=== PATIENT | male | born 1960 | race Caucasian/White ===

== ENCOUNTER → 2019-12-22 13:43 | Outpatient (CLI) | payer OTHER, SELFPAY ==
[2019-12-16 16:24] VITALS: BMI 27.6
--- NOTE | 2019-12-22 13:54 | US_ITS ---
STUDY: ULTRASOUND - URINARY BLADDER REASON FOR EXAM: Male, 59 years old. Frequency TECHNIQUE: Ultrasound evaluation of the urinary bladder was performed with real-time and static roland-scale imaging. COMPARISON: None. FINDINGS: There is no right UVJ calculus. There is a visualized right ureteral jet. There is no left UVJ calculus. There is a visualized left ureteral jet. The distended volume of the urinary bladder is 249 ml. The empty volume of the urinary bladder is 39 ml. The bladder wall is within normal limits. The bladder wall measures . There is no demonstrated bladder wall mass lesion. There are no demonstrated bladder calculi. US/Post Void Residual Bladder IMPRESSION: Small postvoid residual. Electronically Signed: Mark Gutierrez, at 14:44 EDT , Service support ,
== END ==
PROVIDERS: PCP Family Medicine; Referring Provider Family Medicine; Visit Provider Family Medicine
DX: R35.0 Frequency of micturition (principal)
CPT/HCPCS: 51798

== ENCOUNTER → 2020-06-15 08:58 | Outpatient (CLI) | payer OTHER, SELFPAY ==
[2020-06-15 08:31] VITALS: BMI 27.7
[2020-06-15 13:25] LABS: AST(SGOT) 21 U/L (15-37); Alanine Aminotransfer ALT/SGPT 50 U/L (16-61); Albumin, Serum 3.8 g/dL (3.2-5.0); Alkaline Phosphatase 56 U/L (45-117); Anion Gap 6 (5-15); BUN 14 mg/dL (7-18); Calcium,Total 9.2 mg/dL (8.5-10.1); Chloride 104 mmol/L (98-107); Cholesterol 207 mg/dL (200); EST Glomerular Filtration Rate 81 mL/min (>60); Est Glom Filt Rate - Afr Amer 98 mL/min (>60); Globulin 3.8 g/dL (2.2-4.2); Glucose 91 mg/dL (74-106); High Density Lipoprotein 46 mg/dL; Protein, Total 7.6 g/dL (6.4-8.2); Sodium Level 141 mmol/L (136-145); Triglycerides 173 mg/dL; Very Low Density Lipoprotein 35 mg/dL (5-40)
== END ==
PROVIDERS: PCP Family Medicine; Referring Provider Family Medicine; Visit Provider Family Medicine
DX: I10 Essential (primary) hypertension (principal); E78.49 Other hyperlipidemia
CPT/HCPCS: 36415; 80053; 80061

== ENCOUNTER → 2020-12-12 09:02 | Outpatient (CLI) | payer OTHER, SELFPAY ==
[2020-12-12 08:40] VITALS: BMI 27.7
[2020-12-12 12:41] LABS: T4 Free Direct 0.96 ng/dL (0.76-1.46)
== END ==
PROVIDERS: PCP Family Medicine; Referring Provider Family Medicine; Visit Provider Family Medicine
DX: I10 Essential (primary) hypertension (principal)
CPT/HCPCS: 36415; 84439; 84443

== ENCOUNTER 2021-10-02 08:58 | Outpatient (CLI) | payer OTHER, SELFPAY ==
[2021-10-02 13:01] LABS: ALB/GLOB Ratio 1.1 RATIO (0.9-2.4); AST(SGOT) 29 U/L (15-37); Alanine Aminotransfer ALT/SGPT 63 U/L (16-61); Albumin, Serum 3.8 g/dL (3.2-5.0); Alkaline Phosphatase 48 U/L (45-117); Anion Gap 5 (5-15); BUN 13 mg/dL (7-18); BUN/Creat Ratio 13.2 RATIO (10-20); Calcium,Total 9.1 mg/dL (8.5-10.1); Chloride 105 mmol/L (98-107); Cholesterol 199 mg/dL (200); Creatinine, Serum 0.98 mg/dL (0.70-1.30); EST Glomerular Filtration Rate 82 mL/min (>60); Est Glom Filt Rate - Afr Amer 99 mL/min (>60); Globulin 3.6 g/dL (2.2-4.2); Glucose 101 mg/dL (74-106); High Density Lipoprotein 37 mg/dL; PSA,Total- Diagnostic 2.75 ng/mL (0.0-4.0); Potassium 4.1 mmol/L (3.5-5.1); Protein, Total 7.4 g/dL (6.4-8.2); Sodium Level 140 mmol/L (136-145); Triglycerides 243 mg/dL; Very Low Density Lipoprotein 49 mg/dL (5-40)
== END 2021-10-02 23:59 | disposition home or self-care (01) ==
LOC: BIMLAB 08:59
PROVIDERS: PCP Family Medicine; Referring Provider Family Medicine; Visit Provider Family Medicine
DX: N40.0 Benign prostatic hyperplasia without lower urinary tract symptoms (principal); E78.5 Hyperlipidemia, unspecified; I10 Essential (primary) hypertension
CPT/HCPCS: 36415; 80053; 80061; 84153

== ENCOUNTER 2022-02-10 13:37 | Emergency (ER) | payer OTHER, SELFPAY ==
[2022-02-10 13:38] VITALS: BP 209/98; PULSE 73; RESP 15; TEMP 36.6; O2SAT 97; BMI 27.1
[2022-02-10] MEDS: HYDROcodone Bitartrate/Apap 5/325 Tablet PO (14:27)
[2022-02-10] MEDS: predniSONE 20 MG Tablet 40 MG PO (14:27)
[2022-02-10] MEDS: cycloBENZAPRine HCl 10 MG Tablet PO (14:27)
--- NOTE | 2022-02-10 14:30 | RAD_ITS ---
STUDY: X-RAY - PELVIS AND RIGHT HIP REASON FOR EXAM: Male, 62 years old. Pain TECHNIQUE: 3 views of the pelvis and hip. COMPARISON: None. FINDINGS: There is a non-specific bowel gas pattern. Normal visualized soft tissue structures. Normal bilateral iliac wings, sacroiliac joints and visualized sacrum. Normal bilateral superior and inferior pubic rami. Normal pubic symphysis. Normal bilateral ischial tuberosities. There are degenerative changes of the hips characterized by joint space narrowing and subchondral sclerosis. RAD/HIP, UNI W/ Pelvis 2-3 Views IMPRESSION: Degenerative changes. Electronically Signed: Phuong Cordova MD at 15:40 EDT ,
[2022-02-10 15:41] VITALS: BP 200/98; PULSE 61; RESP 16; O2SAT 96
--- NOTE | 2022-02-10 16:05 | EX.ED.DYSGE1 ---
HPI History of Present Illness Chief Complaint: Lower Extremity Injury Detail of Chief Complaint: Right hip pain Informant: patient Onset/Context/Timing Onset: Days Context: Gradual Onset Current Severity: Moderate Maximum Severity: Moderate Narrative Narrative: Patient presents secondary to right hip pain. He fell a couple days ago while doing some yard work landing on his right side. He has been sore but tolerable over the past several days. He was sitting at his [employer] baseball game today when he started getting more severe pain down the back of his thigh to his knee. He brought his neighbors cane to help him ambulate today. [facility] Medical History (Updated 02/10/22 @ 16:[address] Lorelei Macias MD) Back problem Frequent headaches Hearing problem History of hand fracture Hives Hyperlipemia Hypertension prostate issues Seasonal allergies Home Medications multivitamin 1 cap PO DAILY 10/28/19 [History Last Taken Unknown] omega 7-dwk-xvs-fish oil 1,600 mg-500 mg-800 mg/5 mL oral liquid (Fish Oil) 5 ml PO DAILY 10/28/19 [History Last Taken Unknown] cetirizine 10 mg capsule 10 mg PO DAILY #90 caps 12/16/19 [Rx Last Taken Unknown] azilsartan medoxomil 80 mg tablet (Edarbi) 80 mg PO DAILY #90 tabs 10/02/21 [Rx Last Taken Unknown] carvedilol 25 mg tablet 25 mg PO BID #180 tabs 10/02/21 [Rx Last Taken Unknown] tadalafil 5 mg tablet 5 mg PO DAILY #90 tabs 10/02/21 [Rx Last Taken Unknown] cyclobenzaprine 10 mg tablet 10 mg PO BID PRN muscle spasm #10 tabs 02/10/22 [Rx Last Taken Unknown] hydrocodone-acetaminophen 5-325mg 5mg-325mg 1 tab PO Q6H PRN pain 3 days #10 tabs 02/10/22 [Rx Last Taken Unknown] prednisone 20 mg tablet 40 mg PO DAILY #8 tabs 02/10/22 [Rx Last Taken Unknown] Allergy/AdvReac Type Severity Reaction Status Date / Time Influenza Virus Vaccines Allergy Severe Hives Verified 02/10/22 13:38 niacin Allergy Severe Hives Verified 02/10/22 13:38 most BP medications AdvReac Severe dizziness Uncoded 02/10/22 13:38 Family History Father Myocardial infarction, Onset Age: 45 Mother Hypertension Brother Hypertension Sister Hypertension Other Alcoholism Arthritis Breast cancer Cancer Diabetes Heart disease Hyperlipemia Surgical History History of removal of cyst Social History Smoking Status: Never smoker alcohol intake: current alcohol intake frequency: 0-2 drinks per day Alcohol type: beer and wine substance use type: does not use what type of physical activity do you participate in: bicycling frequency: 1-2 times per week ROS ROS ED Constitutional Constitutional ED: Denies chills or fever(s) Eyes Eyes: Denies change in vision or discharge from eye(s) ENT ENT ED: Denies discharge from eye(s), rhinorrhea or sore throat Cardiovascular Cardiovascular: Denies chest pain or palpitations Respiratory/Chest Respiratory/Chest: Denies cough or dyspnea Gastrointestinal Gastrointestinal: Denies abdominal pain, diarrhea, nausea or vomiting Genitourinary Genitourinary ED: Denies difficulty urinating or dysuria Musculoskeletal Musculoskeletal: Reports back pain and extremity pain Integumentary Denies Abrasions or rash Neurologic Neurologic: Denies headache(s) or weakness Allergic/Immunologic Allergic/Immunologic ED: Denies lip swelling or urticaria EXAM Physical Exam Const Vital Signs: 02/10/22 13:38 02/10/22 15:41 Temperature 97.9 F Temperature Source Temporal Pulse Rate 73 61 Respiratory Rate 15 16 Blood Pressure 209/98 H 200/98 H Blood Pressure Mean 135 132 Pulse Ox 97 96 Oxygen Delivery Method Room Air Room Air Positive well nourished and well developed General Appearance ED: well developed HEENT Reports normocephalic and head/scalp atraumatic Eyes PERRL and EOMs intact bilaterally Neck supple Chest Wall inspection of chest normal and palpation of chest normal Resp normal respiratory effort and clear to auscultation bilaterally Cardio regular rate and regular rhythm GI normal to inspection, nondistended, normoactive bowel sounds Palpation: soft Back/Spine no CVA tenderness Back/Spine Narrative: Reproducible tenderness in the right lower lumbar paraspinal muscles and over the right sciatic notch. Extremity normal to inspection Extremity Narrative: No reproducible tenderness with palpation over the hip. Neuro oriented x3 and no sensory deficits noted Sensorium / Orientation: alert Motor Exam: strength 5/5 throughout Psych mental status grossly normal Skin no rashes or lesions noted MDM MDM MDM Narrative Medical decision making narrative: Patient was given [place], Flexeril, prednisone. Pelvis and right hip x-rays obtained. Radiography Diagnostic Testing: Clinical Impression(s) from Imaging Studies Hip/Pelvis X-Ray 02/10/22 14:30 IMPRESSION: Degenerative changes. Electronically Signed: Phuong Cordova MD at 15:40 EDT , Treatment and Re-Evaluation Narrative: Pelvis and right hip x-rays per my interpretation reveal no acute bony injury. Radiology interpretation is reviewed. On repeat evaluation patient states pain is significantly improved. I will write him prescriptions for the same. He is to follow-up with his primary care physician in 1 week if not improving. Discharge Plan Triage Chief Complaint: Lower Extremity Injury ED Provider: Lorelei Macias Dx/Rx/DC Orders Clinical Impression: Contusion of hip, Sciatica Instructions: ED Hip Contusion, ED Sciatica Prescriptions: New hydrocodone-acetaminophen 5-325 mg tablet 1 tab PO Q6H PRN (Reason: pain) 3 Days Qty: 10 0RF cyclobenzaprine 10 mg tablet 10 mg PO BID PRN (Reason: muscle spasm) Qty: 10 0RF prednisone 20 mg tablet 40 mg PO DAILY Qty: 8 0RF No Action cetirizine 10 mg capsule 10 mg PO DAILY Qty: 90 1RF Fish Oil 1,600-500-800 mg/5 mL liquid 5 ml PO DAILY multivitamin capsule 1 cap PO DAILY carvedilol 25 mg tablet 25 mg PO BID Qty: 180 2RF Rx Instructions: must administer with a meal/food Edarbi 80 mg tablet 80 mg PO DAILY Qty: 90 2RF tadalafil 5 mg tablet 5 mg PO DAILY Qty: 90 1RF Primary Care Provider: Nixon Torres Referrals: Nixon Torres, DO [Primary Care Provider] - 1 Week if not improving Disposition Disposition: Home, Self Care
== END 2022-02-10 16:16 | disposition home or self-care (01) ==
PROVIDERS: Emergency Provider Emergency Medicine; PCP Family Medicine; Visit Provider Emergency Medicine
DX: S70.01XA Contusion of right hip, initial encounter (principal); E78.5 Hyperlipidemia, unspecified; I10 Essential (primary) hypertension; Z79.899 Other long term (current) drug therapy; W19.XXXA Unspecified fall, initial encounter; M54.41 Lumbago with sciatica, right side
CPT/HCPCS: 73502; 99283

== ENCOUNTER → 2022-10-15 | Outpatient (CLI) | payer OTHER, SELFPAY ==
[2022-10-15 13:27] LABS: ALB/GLOB Ratio 1.1 RATIO (0.9-2.4); AST(SGOT) 25 U/L (15-37); Alanine Aminotransfer ALT/SGPT 55 U/L (16-61); Albumin, Serum 3.8 g/dL (3.2-5.0); Alkaline Phosphatase 47 U/L (45-117); Anion Gap 8 (5-15); BUN 13 mg/dL (7-18); BUN/Creat Ratio 13.5 RATIO (10-20); Calcium,Total 9.3 mg/dL (8.5-10.1); Chloride 106 mmol/L (98-107); Cholesterol 194 mg/dL (200); Creatinine, Serum 0.96 mg/dL (0.70-1.30); EST Glomerular Filtration Rate 84 mL/min (>60); Est Glom Filt Rate - Afr Amer 102 mL/min (>60); Globulin 3.6 g/dL (2.2-4.2); Glucose 123 mg/dL (74-106); High Density Lipoprotein 38 mg/dL; PSA,Total- Diagnostic 3.14 ng/mL (0.0-4.0); Potassium 4.2 mmol/L (3.5-5.1); Protein, Total 7.4 g/dL (6.4-8.2); Sodium Level 140 mmol/L (136-145); Triglycerides 202 mg/dL; Very Low Density Lipoprotein 40 mg/dL (5-40)
== END | disposition home or self-care (01) ==
LOC: BIMLAB 08:58
PROVIDERS: PCP Family Medicine; Referring Provider Family Medicine; Visit Provider Family Medicine
DX: I10 Essential (primary) hypertension (principal); E78.5 Hyperlipidemia, unspecified; R35.0 Frequency of micturition
CPT/HCPCS: 36415; 80053; 80061; 84153

== ENCOUNTER → 2023-10-15 | Outpatient (CLI) | payer OTHER, SELFPAY ==
[2023-10-15 13:24] LABS: ALB/GLOB Ratio 1.1 RATIO (0.9-2.4); AST(SGOT) 30 U/L (15-37); Alanine Aminotransfer ALT/SGPT 64 U/L (16-61); Albumin, Serum 3.9 g/dL (3.2-5.0); Alkaline Phosphatase 48 U/L (45-117); Anion Gap 5 (5-15); BUN 13 mg/dL (7-18); BUN/Creat Ratio 13.4 RATIO (10-20); Calcium,Total 9.1 mg/dL (8.5-10.1); Chloride 107 mmol/L (98-107); Cholesterol 188 mg/dL (200); Creatinine, Serum 0.97 mg/dL (0.70-1.30); EST Glomerular Filtration Rate 83 mL/min (>60); Est Glom Filt Rate - Afr Amer 100 mL/min (>60); Globulin 3.5 g/dL (2.2-4.2); Glucose 111 mg/dL (74-106); High Density Lipoprotein 40 mg/dL; Potassium 3.9 mmol/L (3.5-5.1); Protein, Total 7.4 g/dL (6.4-8.2); Sodium Level 142 mmol/L (136-145); Triglycerides 215 mg/dL; Very Low Density Lipoprotein 43 mg/dL (5-40)
== END | disposition home or self-care (01) ==
LOC: BIMLAB 09:05
PROVIDERS: PCP Family Medicine; Visit Provider Family Medicine
DX: Z00.00 Encounter for general adult medical examination without abnormal findings (principal)
CPT/HCPCS: 36415; 80053; 80061

== ENCOUNTER 2023-11-20 09:37 | Day surgery (SDC) | payer OTHER, SELFPAY ==
[2023-11-20] MEDS: Lactated Ringers 1,000 ML 15 ML IV (10:15)
[2023-11-20 10:26] VITALS: BP 186/102; PULSE 59; RESP 18; TEMP 36.6; O2SAT 98; BMI 26.4
--- NOTE | 2023-11-20 10:49 | HP.PCM_ITS ---
History and Physical Date of Admission: 11/20/23 Intake Vital Signs 10/15/2407:24 11/06/2408:30 11/06/2408:52 Height 5 ft 11 in 5 ft 11 in Weight: 199 lb 2 oz 200 lb BMI 27.8 27.8 BP 180/100 H 202/126 H 191/115 H Blood Pressure Location Lt brachial Rt brachial Lt brachial Position Sitting Sitting Respiration 18 18 Pulse 79 72 Pulse Source Monitor Monitor Temp 97.2 F L 97.6 F L Temp Source Temporal Temporal Pulse Oximetry (%) 97 97 Oxygen Delivery Method room air room air Intake Visit Reasons: POSITIVE COLOGUARD Chief Complaint: positive cologuard Palaeontologist Required: No Accompanied by: Is patient in pain?: No Allergies Influenza Virus Vaccines Allergy (Severe, Verified 11/07/23 09:33) Hivesniacin Allergy (Severe, Verified 11/07/23 09:33) Hivesmost BP medications Adverse Reaction (Severe, Uncoded 11/07/23 09:33) dizziness Medications multivitamin 1 cap PO DAILY 10/28/19 [History Confirmed 11/07/23] omega 6-yyp-pbo-fish oil 1,600 mg-500 mg-800 mg/5 mL oral liquid (Fish Oil) 5 ml PO DAILY 10/28/19 [History Confirmed 11/07/23] cetirizine 10 mg capsule 10 mg PO DAILY #90 caps 12/16/19 [Rx Confirmed 11/07/23] azilsartan medoxomil 80 mg tablet (Edarbi) See Rx Instructions .Route .COMPLEX #90 tabs 10/15/23 [Rx Confirmed 11/07/23] carvedilol 25 mg tablet 25 mg PO BID #180 tabs 10/15/23 [Rx Confirmed 11/07/23] tadalafil 5 mg tablet 5 mg PO DAILY #90 tabs 10/15/23 [Rx Confirmed 11/07/23] PFSH Medical History Acute bronchitis, unspecified Back problem Contact dermatitis due to poison caty Frequent headaches Hearing problem History of hand fracture Hives Hyperlipemia Hypertension prostate issues Seasonal allergies Surgical History History of removal of cyst Family History Father Myocardial infarction, Onset Age: 45Mother HypertensionBrother HypertensionSister HypertensionOther Alcoholism Arthritis Breast cancer Cancer Diabetes Heart disease Hyperlipemia Social History Smoking Status: Never smoker alcohol intake: current alcohol intake frequency: 0-2 drinks per day Alcohol type: beer and wine substance use type: does not use what type of physical activity do you participate in: bicycling frequency: 1-2 times per week HPI HPI HPI: 63-year-old male presents due to positive Cologuard. Patient states he had a colonoscopy 10 years ago it was negative. Patient states he has bowel moods daily but does have hemorrhoids and years ago had she when lifting something heavy and the other emigdio slipped states he tore his sphincter as he saw his PCP. Patient did not require surgery as it did heal but patient states he had scar tissue. Patient does try to follow a high-fiber diet and drink plenty of water to avoid constipation. Patient states prior to doing the Cologuard he did have a harder stool as he does have occasional bleeding due to the hemorrhoids. Patient denies any immediate relatives with colon cancer patient's maternal uncle in his late 60s did have colon cancer. ROS General General: No weight change, appetite, fatigue, colon cancer, breast cancer or weakness HEENT HEENT: No difficulty swallowing, eye injury, eye surgery, swollen glands or hoarseness Endo Endocrine: No thyroid disease, diabetes mellitus, thyroid cancer, Hair loss, heat intolerance or cold intolerance Skin Skin: No rash or changing moles Musc Musculoskeletal: No back problems, arthritis, rheumatoid arthritis, gout or joint pain Cardio Cardiovascular: Yes high blood pressure; No murmur, pacemaker, heart disease, atrial fibrillation, heart attack, heart stent, palpitations, shortness of breat with exertion or chest pain Psych Psychiatric: No depression, anxiety or hearing voices Resp Respiratory: No shortness of breath, No sleep apnea, No cough, No COPD, No asthma, No emphysema and No wheezing Gastro Gastrointestinal: No abdominal pain, No nausea or vomiting, No diarrhea, No constipation, Yes blood in stool, No acid reflux, Yes hemorrhoids, No ulcers, No gallbladder problem and No black,tarry stools Meet Hematologic: No blood thinners, No blood disorders, No bleeding, No anemia and No blood clots Neuro Neurologic: No numbness, No tingling and No weakness Exam Const General: cooperative, healthy appearing, comfortable and no acute distress [facility] Head: normocephalic and atraumatic Neck Neck: supple Resp Effort & Inspection: normal respiratory effort Cardio Rate: regular rate GI Inspection: non-distended Palpation: soft and nontender Rectal Exam: deferred Skin General: no rashes or lesions noted Neuro General: CN's II-XI intact bilaterally Extrem General: normal to inspection Psych Mental Status: mental status grossly normal Attitude: cooperative Assessment and Plan Assessment and Plan (1) Positive colorectal cancer screening using Cologuard test: Status: Acute Plan Did discuss with patient that we do not have the compounds of hydrocortisone and lidocaine suppositories as well as cream for hemorrhoids if he has issues in the future as this medication does work better than [id number]. Patient will call and let us know if he would like a prescription in the future. I have discussed the above with the patient. I have offered the patient colonoscopy for evaluation. I have explained the risks/benefits of the procedure and described the procedure. I have discussed the risks with the patient, including but not limited to: infection, bleeding, perforation of the GI tract requiring emergency surgery, inability to complete the procedure, injury to any internal organs, complications of anesthesia, etc. - the patient understands and agrees to proceed. I have answered all the patient's questions to the patient's satisfaction and the patient has no further questions. The patient has been given instructions for the colon cleansing preparation. 1 day of clears, MiraLAX Dulcolax prep Renetta Lazcano M.D. Pager: [phone] [facility] [address] [place] [address], [facility], [address] [place] [address] Office: [phone] I have examined the patient and the H&P has been reviewed. Dr. Lazcano is out sick today and I will do her colonoscopy for her. I discussed this with the patient and he is agreeable. There are no clinical changes since date of exam. I explained endoscopy in detail to the patient. I explained the risks including but not limited to stroke or heart attack with anesthesia, perforation of the GI tract, bleeding, infection. I explained that any of these could necessitate further emergency surgery. The patient understands and all questions were answered sufficiently. The patient wishes to proceed with procedure. Wood De Oliveira MD Pager: [facility] [address] [place] [address] [address] [place] [address] Office:
--- NOTE | 2023-11-20 11:00 | COLBX_PTH ---
PATIENT: JENNIFER LAGOS LOC: [facility] U#:[id number] AGE/SX: 63/M ROOM: RE11/20/[address]: Dr. Wood De Oliveira MD : 1960 BED: DIS: 11/20/2023 SPEC #: [id number] RECD: 11/20/23 13:03 STATUS: JOE SHERI #: [id number] RAFAEL: 11/20/23 11:[address]: Wood De Oliveira DEPT: SURGICAL PATHOLOGY RECD BY: Lynn Villasenor ENTERED: 11/20/23 13:30 SP TYPE: COLON BX OTHR DR: Dr. Nixon Torres, DO Tissues: Cecum, NOS Procedures: Surgery Specimen Level IV HEADER OPERATION: Colonoscopy with polypectomy PRE-OP DIAGNOSIS: Positive colorectal cancer screening using Cologuard test TISSUE SUBMITTED: Cecum polyp MICROSCOPIC DIAGNOSIS Cecal polyp, biopsy: Fragments of tubular adenoma. AM/mr 4/12/24 MICROSCOPIC DESCRIPTION Slides are reviewed. GROSS DESCRIPTION Received in fixative is one container labeled with the patient's name and designated Cecum polyp. The specimen consists of multiple irregular fragments of light kennedy soft tissue that in aggregate measure 1.5 x 0.3 x 0.1 cm. The specimen is totally submitted in one cassette. CHAPARRO/ 11/20/23 TC:5 CPT:82686
--- NOTE | 2023-11-20 11:29 | OP.CCLET_ITS ---
11/20/2023 Nixon Torres Re : Colonoscopy procedure for Syed Mendoza Dear Dr. Torres This procedure was performed on November. My impressions and recommendations are as follows: Impressions : - One small polyp in the cecum, removed with a hot snare. Resected and retrieved. - The examination was otherwise normal on direct and retroflexion views. Recommendations : - Discharge patient to home. - Resume previous diet. - Continue present medications. - Await pathology results. - Repeat colonoscopy in 5 years for surveillance based on pathology results. My findings are described in the full procedure note, which is enclosed. If I can be of further assistance, please feel free to contact me at Doctor phone number(s): , Work: . Sincerely, Wood De Oliveira MD 11/20/2023 11:29:01 AM This report has been signed electronically.
--- NOTE | 2023-11-20 11:29 | OP.COLON_ITS ---
Patient Name: Syed Mendoza Procedure Date: 11/20/2023 11:01 AM Date of : 1960 Age: 63 Procedure: Colonoscopy Indications: Positive Cologuard test Providers: Wood De Oliveira MD Referring MD: Nixon Torres Medicines: Propofol per Anesthesia Patient Profile: This is a 63 year old male. Refer to note in patient chart for documentation of history and physical. Last Colonoscopy: 10 years ago. Complications: No immediate complications. Estimated blood loss: Minimal. Procedure: Pre-Anesthesia Assessment: - Prior to the procedure, a History and Physical was performed, and patient medications and allergies were reviewed. The patient's tolerance of previous anesthesia was also reviewed. The risks and benefits of the procedure and the sedation options and risks were discussed with the patient. All questions were answered, and informed consent was obtained. Prior Anticoagulants: The patient has taken no anticoagulant or antiplatelet agents. After reviewing the risks and benefits, the patient was deemed in satisfactory condition to undergo the procedure. After I obtained informed consent, the scope was passed under direct vision. Throughout the procedure, the patient's blood pressure, pulse, and oxygen saturations were monitored continuously. The Colonoscope was introduced through the anus and advanced to the cecum, identified by appendiceal orifice and ileocecal valve. The colonoscopy was performed without difficulty. The patient tolerated the procedure well. The quality of the bowel preparation was good. The ileocecal valve, appendiceal orifice, and rectum were photographed. Scope In: 11:13:10 AM Scope Withdrawal Time 0 hours 6 minutes 2 seconds Scope Out: 11:22:46 AM Total Procedure Duration Time 0 hours 9 minutes 36 seconds Findings: A small polyp was found in the cecum. The polyp was removed with a hot snare. Resection and retrieval were complete. The exam was otherwise without abnormality on direct and retroflexion views. Impression: - One small polyp in the cecum, removed with a hot snare. Resected and retrieved. - The examination was otherwise normal on direct and retroflexion views. Recommendation: - Discharge patient to home. - Resume previous diet. - Continue present medications. - Await pathology results. - Repeat colonoscopy in 5 years for surveillance based on pathology results. Procedure Code(s): --- Professional --- 49402, Colonoscopy, flexible; with removal of tumor(s), polyp(s), or other lesion(s) by snare technique Diagnosis Code(s): --- Professional --- D12.0, Benign neoplasm of cecum R19.5, Other fecal abnormalities CPT copyright 2021 [employer]. All rights reserved. The codes documented in this report are preliminary and upon criminal justice program director review may be revised to meet current compliance requirements. Wood De Oliveira MD 11/20/2023 11:29:01 AM This report has been signed electronically. Number of Addenda: 0 Note Initiated On: 11/20/2023 11:01 AM
[2023-11-20 11:30] VITALS: BP 122/66; BP 186/99; PULSE 71; RESP 16; TEMP 36.4; O2SAT 94
[2023-11-20 11:35] VITALS: BP 117/72; BP 186/99; PULSE 71; RESP 16; O2SAT 95
[2023-11-20 11:40] VITALS: BP 118/53; BP 186/99; PULSE 65; RESP 16; TEMP 36.4; O2SAT 95
[2023-11-20 12:14] VITALS: BP 186/99
== END 2023-11-20 12:21 | disposition home or self-care (01) ==
LOC: SDC 09:39 → AC 09:39
PROVIDERS: PCP Family Medicine; Referring Provider Family Medicine; Visit Provider Surgery
PROC: 0DJD8ZZ Inspection of Lower Intestinal Tract, Via Natural or Artificial Opening Endoscopic (ICD-10-PCS; CPT 45378; principal; 2023-11-20 10:55)
DX: D12.0 Benign neoplasm of cecum (principal); K64.9 Unspecified hemorrhoids; E78.5 Hyperlipidemia, unspecified; Z80.3 Family history of malignant neoplasm of breast; I10 Essential (primary) hypertension; R19.5 Other fecal abnormalities
CPT/HCPCS: 45385; 88305; J7120; J2405

== ENCOUNTER → 2024-10-19 | Outpatient (CLI) | payer BC, SELFPAY ==
[2024-10-19 13:20] LABS: Cholesterol 235 mg/dL (<=200); High Density Lipoprotein 43 mg/dL; Low Density Lipoprotein Calc. 148 mg/dL; PSA,Total - Annual Screen 5.45 ng/mL (0.02-4.00); Triglycerides 221 mg/dL; Very Low Density Lipoprotein 44 mg/dL (5-40); cholesterol:hdl ratio screen 5.45
[2024-10-19 13:24] LABS: ALB/GLOB Ratio 1.5 RATIO (0.9-2.4); AST(SGOT) 25 U/L (<=37); Alanine Aminotransfer ALT/SGPT 28 U/L (<=46); Albumin, Serum 4.5 g/dL (3.4-4.8); Alkaline Phosphatase 47 U/L (40-129); Anion Gap 11 (5-15); BUN 15 mg/dL (4-19); BUN/Creat Ratio 16.6 RATIO (10-20); Calcium,Total 9.5 mg/dL (7.6-11.0); Carbon Dioxide 25.4 mmol/L (21.0-32.0); Chloride 102 mmol/L (98-108); Creatinine, Serum 0.93 mg/dL (0.70-1.20); EST Glomerular Filtration Rate 92 (>60); Globulin 2.9 g/dL (2.2-4.2); Glucose 99 mg/dL (70-99); Potassium 4.1 mmol/L (3.3-5.1); Protein, Total 7.4 g/dL (5.9-8.4); Sodium Level 139 mmol/L (133-145); Total Bilirubin 0.67 mg/dL (0.00-1.30)
== END | disposition home or self-care (01) ==
PROVIDERS: PCP Family Medicine; Referring Provider Family Medicine; Visit Provider Family Medicine
DX: I10 Essential (primary) hypertension (principal); N40.0 Benign prostatic hyperplasia without lower urinary tract symptoms; E78.49 Other hyperlipidemia
CPT/HCPCS: 36415; 80053; 80061; 84153; G0103

== ENCOUNTER → 2025-05-05 | Outpatient (CLI) | payer MEDICARE, SELFPAY ==
[2025-05-05 12:24] LABS: Hematocrit 42.9 % (40-54); Hemoglobin 14.7 g/dL (13.0-16.5); Immature Granulocytes Count 0.030 X10^3/uL (0.0-0.0); Mean Corp Hgb Conc 34.3 g/dL (32-36); Mean Corpuscular Volume 88.3 fL (80-94); Mean Platelet Vol. 11.6 fl (6.2-12.0); NRBC Flagged by Analyzer 0 % (0-5); Platelet Count 219 K/mm3 (150-450); RBC Distribution Width CV 12.6 % (11.6-14.6); RBC Distribution Width SD 40.9 fl (35.1-43.9); Red Blood Count 4.86 M/mm3 (4.6-6.2); White Blood Count 7.4 K/mm3 (4.4-11.0)
[2025-05-05 12:44] LABS: AST(SGOT) 21 U/L (<=37); Alanine Aminotransfer ALT/SGPT 24 U/L (<=46); Albumin, Serum 4.4 g/dL (3.4-4.8); Alkaline Phosphatase 61 U/L (40-129); Anion Gap 9 (5-15); BUN 16 mg/dL (4-19); BUN/Creat Ratio 16.4 RATIO (10-20); Calcium,Total 9.7 mg/dL (7.6-11.0); Carbon Dioxide 27.6 mmol/L (21.0-32.0); Chloride 102 mmol/L (98-108); Globulin 2.5 g/dL (2.2-4.2); Glucose 92 mg/dL (70-99); Potassium 4.5 mmol/L (3.3-5.1)
[2025-05-05 12:48] LABS: PSA,Total- Diagnostic 4.20 ng/mL (0.00-4.00)
== END | disposition home or self-care (01) ==
LOC: MTLAB 10:34
PROVIDERS: Physician Assistant; PCP Family Medicine; Referring Provider Family Medicine; Visit Provider Family Medicine
DX: I10 Essential (primary) hypertension (principal); R97.20 Elevated prostate specific antigen [PSA]
CPT/HCPCS: 36415; 80053; 84153; 85025